=== PATIENT | female | born 1985 | race Two or more races ===

== ENCOUNTER 2024-12-25 07:50 | Day surgery (SDC) | payer BC, MEDICAID, SELFPAY ==
--- NOTE | 2024-12-22 06:37 | EKG_ITS ---
[facility] Test Date: 2024-12-22 Pat Name: MARIANGEL WOODS Department: Room: - Gender: Female Infection Control Manager: AUDRA : 1985 Requested By: Damián Lopez Order Number: [id number] Reading MD: Damián Lopez Measurements Intervals [place] Rate: 64 P: 44 ID: [id number] QRS: 39 QRSD: 88 T: 29 QT: 382 QTc: 395 Interpretive Statements SINUS RHYTHM No previous ECG available for comparison /[id number]/[email or web address]/[id number]
[2024-12-22 11:09] VITALS: BMI 42.3
[2024-12-22 11:43] LABS: Collection Type, Urine Clean Catch
[2024-12-22 13:41] LABS: Basophils % (Auto) 1 % (0-2.5); Eosinophils # (Auto) 0.2 Thou/mm3 (0.0-0.5); Eosinophils % (Auto) 3 % (0-10); Hemoglobin 13.1 g/dL (12.0-16.0); Immature Granulocytes % (Auto) 0 % (0-0); Immature Granulocytes Auto 0.02 Thou/mm3 (0.00-0.00); Lymphocytes # (Auto) 1.8 Thou/mm3 (1.0-4.8); Lymphocytes % (Auto) 24 % (10-50); Mean Corpuscular HGB Conc 32.8 g/dl (31.0-37.0); Mean Corpuscular Hemoglobin 26.1 pg (25.0-35.0); Mean Corpuscular Volume 80 fL (80-100); Monocytes # (Auto) 0.5 Thou/mm3 (0.0-0.8); Monocytes % (Auto) 7 % (0-12); Neutrophils # (Auto) 5.2 Thou/mm3 (1.8-7.7); Neutrophils % (Auto) 66 % (37-80); Nucleated Red Blood Cell % 0 /100 WBC (0); Platelet Count 284 Thou/mm3 (140-440); RDW Standard Deviation 38.4 fL (36.4-46.3); Red Blood Count 5.02 Miln/mm3 (4.00-5.20); White Blood Count 7.8 Thou/mm3 (3.6-11.0)
[2024-12-22 13:47] LABS: Partial Thromboplastin Time 27.2 Seconds (22.0-36.0)
[2024-12-22 13:51] LABS: Alanine Aminotransferase 25 U/L (10-49); Albumin, Serum 4.2 gm/dL (3.5-5.0); Albumin/Globulin Ratio 1.6 (1.2-2.2); Alkaline Phosphatase 85 U/L (46-116); Anion Gap 6 (7-16); Aspartate Amino Transferase 17 U/L (0-34); BUN/Creatinine Ratio 15 Ratio (12-20); Blood Urea Nitrogen 9 mg/dL (9-23); Calcium 9.2 mg/dL (8.3-10.6); Calcium (Corrected) 9.2 mg/dL (8.5-10.1); Carbon Dioxide 29.4 mMol/L (20.0-31.0); Chloride 107 mMol/L (98-107); Creatinine (Component) 0.6 mg/dL (0.6-1.3); Estimated Creatinine Clearance 182.4 mL/min (>60); Globulin 2.7 gm/dL (2.3-3.5); Glucose 105 mg/dL (74-106); Osmolality,Calculated 281 (275-295); Potassium 4.1 mMol/L (3.4-5.1); Sodium 142 mMol/L (136-145); Total Protein 6.9 gm/dL (5.7-8.2); eGFR > 60 See Note
[2024-12-22 14:21] LABS: Bacteria,Urine 1+; Bilirubin,Urine Negative (Negative); Blood,Urine Negative (Negative); Clarity,Urine Clear (Clear/Hazy); Color,Urine Lt-Yellow (Lt Yel-Yel); Glucose, Urine Negative (Negative); Ketones,Urine Negative (Negative); Leukocyte Esterase,Urine Negative (Negative); Nitrite,Urine Negative (Negative); Protein,Urine Negative (Neg - Trace); RBC,Urine < 1 /hpf (0-3); Specific Gravity,Urine 1.023 (1.001-1.035); Squamous Epithelial Cell,Urine 3 /hpf (0-5); Urobilinogen,Urine Negative mg/dL (0.0-1.0); WBC,Urine 1 /hpf (0-5)
[2024-12-25] VITALS (9 sets, daily range): BP systolic 108–131; BP diastolic 67–77; PULSE 70–83; RESP 12–20; TEMP 36.2–36.9; O2SAT 95–98; BMI 45.8
[2024-12-25] MEDS: RINGERS LACTATED 1000 ML 1,000 ML 60 ML IV (09:10)
[2024-12-25 10:39] LABS: Free T3 3.6 pg/mL (2.3-4.2); Thyroid Stimulating Hormone 0.21 uIU/mL (0.55-4.78)
[2024-12-25 10:46] LABS: T4 (Thyroxine) 6.2 mcg/dL (4.5-10.9)
--- NOTE | 2024-12-25 12:42 | ESOP_ITS ---
Date of Procedure 12/25/24 Pre Op Diagnosis Cholecystitis cholelithiasis morbid obesity Post Op Diagnosis Same Procedure Difficult laparoscopic cholecystectomy due to morbid obesity on December 25, 2024 Findings This patient is morbidly obese with large amount of fat present in the omentum and the liver is enlarged due to hepatic infiltration by fat. The cystic artery and cystic duct were identified and posterior view of safety was achieved. There was a large cystic artery that required clipping. Common duct was identified and the cystic duct stump was about a centimeter and a half towards the common bile duct after division of the cystic duct there were no other remarkable findings. Procedure Description In the preop area the procedure was discussed with the patient and her including risks benefits and alternatives. The risks include possible laparotomy, bleeding, infection bile duct injury and bile leak. Patient may re quire ERCP for retained stone or a bile leak. The anesthesia risks are to be explained to the patient by the anesthesiologist. Informed consent was obtained. The patient was positioned supine on the operating table and general anesthesia was administered in a satisfactory manner by the anesthesiologist. A timeout procedure was carried out. The patient is positioned in the reverse Trendelenburg position with the right side up. Orogastric tube is introduced into the stomach to decompress the stomach. Prophylactic antibiotics were given in timely manner. Antiembolism measures were taken. The abdomen chest and groin regions were prepped and draped in usual manner. A supraumbilical vertical incision was made and deepened through the layers of abdominal wall and open laparoscopic procedure is carried out. The balloon catheter was introduced and pneumoperitoneum is achieved. A 30? scope was used. Under direct vision right subxiphoid, midclavicular and anterior axillary line trochars were introduced. There is significant amount of adiposity collected in the omentum and in the abdominal layers and tissues. The liver is noted to be markedly enlarged and infiltrated with adiposity. There were no tumors in the liver. The gallbladder was defined and then the gallbladder is then lifted up and a laparoscopic lysis of adhesions was carried out. The gallbladder is freed from the adhesions and the joe hepatis is exposed. The triangle of Calot is gently dissected and the artery to cystic duct is divided with harmonic ultrasonic lexi. There is a significant amount of scar chronic scar tissue in the joe hepatis that made the dissection and procedure much slower. The posterior view of safety was achieved. The cystic artery and cystic duct are identified individually and they were ligated close to the gallbladder with hemoclips. There was an accessory cystic artery as well as multiple branches of the cystic artery proper. They were all individually controlled and divided. The cystic artery and the cystic duct are divided between the hemoclips close to the gallbladder. Care was taken to avoid tenting of the common duct. There is a significant length of cystic duct stump towards the common bile duct. The gallbladder is dissected and lifted from the liver bed using harmonic ultrasonic lexi. The gallbladder bed hemostasis is achieved. The gallbladder is retrieved out of the peritoneal cavity in a specimen bag. The balloon cannula is reintroduced and pneumoperitoneum is reestablished. The peritoneal cavity is thoroughly irrigated with sterile saline solution and hemostasis again ascertained. All the cannulas are removed under direct vision there is no bleeding from the cannula sites. The linea alba repair is carried out with the 0 Vicryl continuous suture. The subcutaneous tissues approximated by a 3-0 chromic and skin by 4-0 monocril subcuticular stitch. For the rest of the trocar site incisions are closed in 2 layers with a 3-0 chromic and 4-0 monocril subcuticular stitch. Steri-Strips are applied. Sterile dressings are applied. Complications none. Patient is transferred to the recovery room in a satisfactory condition. Anesthesia GETA Drains None. Implants None. Pathology / specimen Other (Gallbladder with stones) Estimated Blood Loss 10 Condition Stable Disposition PACU Surgeon Damián Lopez MD Surgical Staff Operation Date: 12/25/24 10:00 Case Staff Anesthesiologist: Kevin Bass RN First Assistant: Maria R Perez RN can sterilizer traveler [place] neurosurgical nurse practitioner with Soraida Escudero (1) Cholelithiasis and cholecystitis without obstruction Qualifiers: Cholelithiasis location: gallbladder Cholecystitis acuity: chronic Qualified Code(s): K80.10 - Calculus of gallbladder with chronic cholecystitis without obstruction
--- NOTE | 2024-12-25 12:48 | SUR.PHASEI ---
Pt. arrived to recovery via gurney, eyes closed, responds to verbal commands, VSS, no c/o pain or nausea at this time, lap sites x4 to abdomen, sutures, 2x2, 4x4 and tegaderm intact, no active bleeding or redness noted, lung sounds clear with rhonchi noted on inspiration, pt. receiving 10 liters 02 via NC. Report received from Ralph WHALEN and Isrrael SANTOS.
--- NOTE | 2024-12-25 13:04 | SUR.PHASEI ---
assumed care over pt at this time. pt resting in bed with eyes closed. breathing unlabored on oxymask 5l. v/s stable. pt dressing to abd cdi.
--- NOTE | 2024-12-25 14:20 | SUR.PHASEII ---
pt able to tolerate oral fluids without difficulty swallowing or nausea/vomiting.
--- NOTE | 2024-12-25 14:32 | SUR.PHASEII ---
pt awake and alert, breathing unlabored on room air. v/s stable. pt dressing to abd x4 cdi. pt able to ambulate to wheelchair with steady gait. d/c instructions given with David in room, all questions answered. pt d/c via wheelchair with all belongings.
[2024-12-28 06:37] LABS: T3,Total* 105 ng/dL (76-181)
== END 2024-12-25 14:32 | disposition home or self-care (01) ==
PROVIDERS: Nurse Anesthetist, Certified Registered; Referring Provider Specialist; Visit Provider Specialist
PROC: 0FT44ZZ Resection of Gallbladder, Percutaneous Endoscopic Approach (ICD-10-PCS; CPT 47562; principal; 2024-12-25 09:45)
DX: K80.10 Calculus of gallbladder with chronic cholecystitis without obstruction (principal); E66.01 Morbid (severe) obesity due to excess calories; Z01.810 Encounter for preprocedural cardiovascular examination; Z68.45 Body mass index [BMI] 70 or greater, adult
CPT/HCPCS: 47562; 36415; 80053; 81001; 84436; 84439; 84443; 84480; 84481; 85025; 85730; 93005; A4217; A4649; J0131; J0694; J1171; J1885; J2250; J2704; J3010; J3490; J7120; J1920